=== PATIENT | male | born 1960 | race Caucasian/White ===

== ENCOUNTER 2019-04-11 13:08 | Emergency (ER) | payer BC ==
[2019-04-11 13:19] VITALS: BP 149/100
--- NOTE | 2019-04-11 13:24 | UC ---
Laceration HPI - HPI Summary HPI Summary: 59-year-old male who was working on his deck when he hit the end of a nail with his distal left ring finger causing a very thin V-shaped avulsion laceration. His last tetanus was in 2011 and he would rather follow-up with his primary care provider for updating that. - History Of Current Complaint Chief Complaint: UCLaceration Stated Complaint: LEFT RING FINGER LACERATION Time Seen by Provider: 04/11/19 13:19 Hx Obtained From: Patient Laceration Location: Finger - Left ring finger, palmar side, distal Mechanism Of Injury: Sharp Trauma Onset/Duration: Sudden Onset Severity: Mild Pain Intensity: 3 Aggravating Factors: Nothing - Allergies/Home Medications Allergies/Adverse Reactions: Allergies Allergy/AdvReac Type Severity Reaction Status Date / Time No Known Allergies Allergy Verified 12/28/15 09:35 Home Medications: Home Medications Olmesartan/Hydrochlorothiazide [Benicar Hct 20-12.5 mg] 1 tab PO DAILY 04/11/19 [History Confirmed 04/11/19] PMH/Surg Hx/FS Hx/Imm Hx Previously Healthy: Yes Endocrine History: Diabetes Cardiovascular History: Hypertension - Surgical History Surgical History: Yes Surgery Procedure, Year, and Place: knee repair 2013, 12/2017 right rotator cuff surgery - Family History Known Family History: Positive: Hypertension - Social History Occupation: Retired Lives: With Family Alcohol Use: Daily Alcohol Amount: 2-3 wine Substance Use Type: None Smoking Status (MU): Heavy Every Day Tobacco Smoker Type: Cigarettes Amount Used/How Often: 1 pack daily Review of Systems All Other Systems Reviewed And Are Negative: Yes Skin: Positive: Other - Very small, thin, V-shaped avulsion laceration distal portion left ring finger. Motor: Positive: Negative Neurovascular: Positive: Negative Musculoskeletal: Positive: Negative Neurological: Positive: Negative Is Patient Immunocompromised?: No Physical Exam Triage Information Reviewed: Yes Appearance: Well-Appearing, No Pain Distress, Well-Nourished Vital Signs: Initial Vital Signs Temp 97.3 F 04/11/19 13:15 Pulse 98 04/11/19 13:15 Resp 16 04/11/19 13:15 BP 149/100 04/11/19 13:15 Pulse Ox 98 04/11/19 13:15 Vital Signs Reviewed: Yes Musculoskeletal: Positive: Strength Intact, ROM Intact Neurological: Positive: Alert, Muscle Tone Normal Psychological Exam: Normal Skin: Positive: Other - V shaped avulsion laceration, distal portion left ring finger, palmar side, measuring approximately 0.75 cm, superficial. Laceration Course/Dx - Course/Dx Course Of Treatment: The patient's last tetanus immunization is up-to-date. The wound was irrigated with copious amounts of normal saline. The patient tolerated that well. Because of the nature of the laceration and because it's not very deep I don't believe a suture will hold very well. Bacitracin ointment and a Band-Aid was applied and the patient's to change it daily and watch for signs of infection. - Diagnosis Provider Diagnosis: Laceration of left ring finger - Physician Notification/Consults Discussed Patient Care With: Agustin Velasquez Time Discussed With Above Provider: 13:35 Discharge ED - Sign-Out/Discharge Documenting (check all that apply): Patient Departure All imaging exams completed and their final reports reviewed: No Studies - Discharge Plan Condition: Good Disposition: HOME Patient Education Materials: Laceration (DC) Referrals: No Primary Care Phys,NOPCP [Primary Care Provider] - [facility] [Outside] Additional Instructions: Stop smoking, change the Band-Aid and antibiotic ointment dressing daily. Watch for signs of infection such as hot, red, tender, pus drainage, red streaks up your finger and follow-up at the care [facility] if signs of infection. - Billing Disposition and Condition Condition: GOOD Disposition: Home
== END 2019-04-11 13:42 | disposition home or self-care (01) ==
LOC: UCCORT 13:08
DX: W22.09XA Striking against other stationary object, initial encounter (principal); Y93.89 Activity, other specified; Y92.008 Other place in unspecified non-institutional (private) residence as the place of occurrence of the external cause; S61.215A Laceration without foreign body of left ring finger without damage to nail, initial encounter; F17.210 Nicotine dependence, cigarettes, uncomplicated; E11.9 Type 2 diabetes mellitus without complications; I10 Essential (primary) hypertension
CPT/HCPCS: 99201; G0463